=== PATIENT | male | born 1980 | race Two or more races ===

== ENCOUNTER 2023-07-22 12:27 | Inpatient (IN) | payer OTHER ==
[2023-07-22 12:53] VITALS: BMI 30.1
[2023-07-22] MEDS ORDERED: BENZOCAINE/MENTHOL (CHLORASEPTIC ) LOZENGE MM PRN (16:43)
[2023-07-22] MEDS ORDERED: BENZONATATE 200 MG CAPSULE PO PRN (16:43)
[2023-07-22] MEDS ORDERED: MAG HYDROX/AL HYDROX/SIMETH 30 ML UNIT-DOSE CUP PO PRN (16:43)
[2023-07-22] MEDS ORDERED: POLYETHYLENE GLYCOL (HEALTHYLAX) 3350 17 GM PACKET PO PRN (16:43)
[2023-07-22] MEDS ORDERED: LOPERAMIDE HCL 2 MG CAPSULE PO PRN (16:43)
[2023-07-22] MEDS ORDERED: hydrOXYzine PAMOATE 25 MG CAPSULE (FP) PO PRN (16:43)
[2023-07-22] MEDS ORDERED: ACETAMINOPHEN 325 MG TABLET (FP) PO PRN (16:43)
[2023-07-22] MEDS ORDERED: IBUPROFEN 400 MG TABLET (FP) PO PRN (16:43)
[2023-07-22] MEDS ORDERED: guaiFENesin 600 MG TABLET.ER (FP) PO PRN (16:43)
[2023-07-22] MEDS ORDERED: IBUPROFEN 600 MG TABLET (FP) PO PRN (16:43)
[2023-07-22] MEDS ORDERED: METHOCARBAMOL 500 MG TABLET PO PRN (16:43)
[2023-07-22] MEDS: metFORMIN HCL 500 MG TABLET (FP) PO SCH (17:03)
[2023-07-22] MEDS: THIAMINE HCL 100 MG TABLET (FP) PO SCH (21:20)
[2023-07-22] MEDS ORDERED: MELATONIN 5 MG TABLETS PO SCH (22:00)
[2023-07-23] MEDS: metFORMIN HCL 500 MG TABLET (FP) PO SCH ×2 (07:13→16:33)
[2023-07-23] MEDS: PRENATAL VITAMINS W/ FOLIC ACID TABLET (FP) PO SCH (10:10)
[2023-07-23] MEDS: THIAMINE HCL 100 MG TABLET (FP) PO SCH (21:49)
[2023-07-23] MEDS: amLODIPine BESYLATE 10 MG TABLET (FP) PO SCH (21:53)
[2023-07-23] MEDS ORDERED: SUVOREXANT 10 MG TABLET PO PRN (22:00)
[2023-07-24] MEDS: metFORMIN HCL 500 MG TABLET (FP) PO SCH ×2 (06:46→16:54)
[2023-07-24] MEDS: amLODIPine BESYLATE 10 MG TABLET (FP) PO SCH (10:47)
[2023-07-24] MEDS: PRENATAL VITAMINS W/ FOLIC ACID TABLET (FP) PO SCH (10:47)
[2023-07-24] MEDS: THIAMINE HCL 100 MG TABLET (FP) PO SCH (21:48)
[2023-07-25] MEDS: metFORMIN HCL 500 MG TABLET (FP) PO SCH ×2 (06:32→16:54)
[2023-07-25] MEDS: amLODIPine BESYLATE 10 MG TABLET (FP) PO SCH (10:23)
[2023-07-25] MEDS: PRENATAL VITAMINS W/ FOLIC ACID TABLET (FP) PO SCH (10:23)
[2023-07-25] MEDS: THIAMINE HCL 100 MG TABLET (FP) PO SCH (21:11)
[2023-07-26] MEDS: metFORMIN HCL 500 MG TABLET (FP) PO SCH ×2 (06:49→17:26)
[2023-07-26] MEDS: PRENATAL VITAMINS W/ FOLIC ACID TABLET (FP) PO SCH (10:22)
[2023-07-26] MEDS: amLODIPine BESYLATE 10 MG TABLET (FP) PO SCH (10:22)
[2023-07-26] MEDS: THIAMINE HCL 100 MG TABLET (FP) PO SCH (21:13)
[2023-07-26] MEDS ORDERED: SUVOREXANT 10 MG TABLET PO PRN (22:00)
[2023-07-27] MEDS: metFORMIN HCL 500 MG TABLET (FP) PO SCH ×2 (06:17→16:53)
[2023-07-27] MEDS: PRENATAL VITAMINS W/ FOLIC ACID TABLET (FP) PO SCH (10:00)
[2023-07-27] MEDS: amLODIPine BESYLATE 10 MG TABLET (FP) PO SCH (10:00)
[2023-07-27] MEDS: THIAMINE HCL 100 MG TABLET (FP) PO SCH (21:04)
[2023-07-27] MEDS: LIDOCAINE PATCH REMOVAL MC SCH (21:46)
[2023-07-27] MEDS: METHYL SALICYLATE/MENTHOL OINT 30 GM TUBE TP SCH (21:46)
[2023-07-28] MEDS: metFORMIN HCL 500 MG TABLET (FP) PO SCH ×2 (07:38→16:39)
[2023-07-28 08:56] LABS: POTASSIUM 4.6 mmol/L (3.5-5.1)
[2023-07-28 08:57] LABS: EOS % 3.7 % (0-4.5); HEMATOCRIT 35.5 % (35.4-49); HEMOGLOBIN 12.4 GM/dL (11.7-16.9); LYMPH % 40.6 % (8-40); MCH 30.3 pg (25.7-33.7); MCHC 34.9 g/dl (32.0-35.9); MEAN CELL VOLUME 86.8 fl (80-96); MEAN PLT VOLUME 7.5 fl (7.5-11.1); MONO % 15.3 % (3.8-10.2); NEUT % 39.4 % (42.8-82.8); PLATELET COUNT 347 10^3/uL (134-434); RBC 4.09 M/mm3 (4.00-5.60); RDW 15.9 % (11.9-15.9); WHITE BLOOD COUNT 6.2 K/mm3 (4.0-10.0)
[2023-07-28 09:07] LABS: CALCIUM 9.1 mg/dL (8.5-10.1)
[2023-07-28 09:08] LABS: ALBUMIN 3.3 g/dl (3.4-5.0); BLOOD UREA NITROGEN 13.9 mg/dL (7-18); MAGNESIUM 1.8 mg/dL (1.8-2.4)
[2023-07-28 09:11] LABS: CREATININE 0.8 mg/dL (0.55-1.3)
[2023-07-28 09:12] LABS: BILIRUBIN,TOTAL 0.4 mg/dL (0.2-1); TOT PROT 6.9 g/dl (6.4-8.2)
[2023-07-28] MEDS: LIDOCAINE 5% TOPICAL PATCH TP SCH (10:15)
[2023-07-28] MEDS: amLODIPine BESYLATE 10 MG TABLET (FP) PO SCH (10:15)
[2023-07-28] MEDS: PRENATAL VITAMINS W/ FOLIC ACID TABLET (FP) PO SCH (10:15)
[2023-07-28] MEDS: METHYL SALICYLATE/MENTHOL OINT 30 GM TUBE TP SCH ×2 (10:16→21:37)
[2023-07-28] MEDS: THIAMINE HCL 100 MG TABLET (FP) PO SCH (21:35)
[2023-07-28] MEDS: LIDOCAINE PATCH REMOVAL MC SCH (21:37)
[2023-07-29] MEDS: metFORMIN HCL 500 MG TABLET (FP) PO SCH ×2 (07:31→16:52)
[2023-07-29] MEDS: PRENATAL VITAMINS W/ FOLIC ACID TABLET (FP) PO SCH (10:26)
[2023-07-29] MEDS: METHYL SALICYLATE/MENTHOL OINT 30 GM TUBE TP SCH ×2 (10:27→21:39)
[2023-07-29] MEDS: LIDOCAINE 5% TOPICAL PATCH TP SCH (10:27)
[2023-07-29] MEDS: amLODIPine BESYLATE 10 MG TABLET (FP) PO SCH (10:27)
[2023-07-29] MEDS: THIAMINE HCL 100 MG TABLET (FP) PO SCH (21:38)
[2023-07-29] MEDS: LIDOCAINE PATCH REMOVAL MC SCH (21:40)
[2023-07-30] MEDS: metFORMIN HCL 500 MG TABLET (FP) PO SCH ×2 (06:13→16:59)
[2023-07-30] MEDS: PRENATAL VITAMINS W/ FOLIC ACID TABLET (FP) PO SCH (10:15)
[2023-07-30] MEDS: amLODIPine BESYLATE 10 MG TABLET (FP) PO SCH (10:15)
[2023-07-30] MEDS: LIDOCAINE 5% TOPICAL PATCH TP SCH (10:15)
[2023-07-30] MEDS: METHYL SALICYLATE/MENTHOL OINT 30 GM TUBE TP SCH ×2 (10:16→21:27)
[2023-07-30] MEDS: THIAMINE HCL 100 MG TABLET (FP) PO SCH (21:25)
[2023-07-30] MEDS: LIDOCAINE PATCH REMOVAL MC SCH (21:27)
[2023-07-31] MEDS: metFORMIN HCL 500 MG TABLET (FP) PO SCH ×2 (06:00→17:01)
[2023-07-31] MEDS: COLLOIDAL OATMEAL 1 BAR EACH TP PRN (08:39)
[2023-07-31] MEDS: METHYL SALICYLATE/MENTHOL OINT 30 GM TUBE TP SCH ×2 (09:55→21:24)
[2023-07-31] MEDS: amLODIPine BESYLATE 10 MG TABLET (FP) PO SCH (09:55)
[2023-07-31] MEDS: PRENATAL VITAMINS W/ FOLIC ACID TABLET (FP) PO SCH (09:55)
[2023-07-31] MEDS: LIDOCAINE 5% TOPICAL PATCH TP SCH (09:56)
[2023-07-31] MEDS: THIAMINE HCL 100 MG TABLET (FP) PO SCH (21:23)
[2023-07-31] MEDS: LIDOCAINE PATCH REMOVAL MC SCH (21:24)
[2023-08-01] MEDS: metFORMIN HCL 500 MG TABLET (FP) PO SCH ×2 (06:42→16:59)
[2023-08-01] MEDS: LIDOCAINE 5% TOPICAL PATCH TP SCH (09:46)
[2023-08-01] MEDS: amLODIPine BESYLATE 10 MG TABLET (FP) PO SCH (09:46)
[2023-08-01] MEDS: PRENATAL VITAMINS W/ FOLIC ACID TABLET (FP) PO SCH (09:46)
[2023-08-01] MEDS: METHYL SALICYLATE/MENTHOL OINT 30 GM TUBE TP SCH ×2 (09:47→21:01)
[2023-08-01] MEDS: MAGNESIUM HYDROX 2400MG/30ML ORAL SUSPENSION 30 ML CUP PO PRN (19:51)
[2023-08-01] MEDS: THIAMINE HCL 100 MG TABLET (FP) PO SCH (20:59)
[2023-08-01] MEDS: LIDOCAINE PATCH REMOVAL MC SCH (21:57)
[2023-08-01] MEDS ORDERED: SUVOREXANT 10 MG TABLET PO PRN (22:00)
[2023-08-02] MEDS: metFORMIN HCL 500 MG TABLET (FP) PO SCH ×2 (06:42→16:38)
[2023-08-02] MEDS: PRENATAL VITAMINS W/ FOLIC ACID TABLET (FP) PO SCH (10:07)
[2023-08-02] MEDS: LIDOCAINE 5% TOPICAL PATCH TP SCH (10:07)
[2023-08-02] MEDS: amLODIPine BESYLATE 10 MG TABLET (FP) PO SCH (10:07)
[2023-08-02] MEDS: METHYL SALICYLATE/MENTHOL OINT 30 GM TUBE TP SCH ×2 (10:08→21:33)
[2023-08-02] MEDS: MAGNESIUM HYDROX 2400MG/30ML ORAL SUSPENSION 30 ML CUP PO PRN (13:59)
[2023-08-02] MEDS: THIAMINE HCL 100 MG TABLET (FP) PO SCH (21:32)
[2023-08-02] MEDS: LIDOCAINE PATCH REMOVAL MC SCH (21:33)
[2023-08-03] MEDS: metFORMIN HCL 500 MG TABLET (FP) PO SCH ×2 (06:29→16:40)
[2023-08-03] MEDS: PRENATAL VITAMINS W/ FOLIC ACID TABLET (FP) PO SCH (09:55)
[2023-08-03] MEDS: METHYL SALICYLATE/MENTHOL OINT 30 GM TUBE TP SCH ×2 (09:55→21:04)
[2023-08-03] MEDS: amLODIPine BESYLATE 10 MG TABLET (FP) PO SCH (09:56)
[2023-08-03] MEDS: LIDOCAINE 5% TOPICAL PATCH TP SCH (09:56)
[2023-08-03] MEDS: THIAMINE HCL 100 MG TABLET (FP) PO SCH (21:04)
[2023-08-03] MEDS: LIDOCAINE PATCH REMOVAL MC SCH (21:04)
[2023-08-04] MEDS: metFORMIN HCL 500 MG TABLET (FP) PO SCH ×2 (06:50→17:25)
[2023-08-04] MEDS: METHYL SALICYLATE/MENTHOL OINT 30 GM TUBE TP SCH ×2 (09:51→21:53)
[2023-08-04] MEDS: LIDOCAINE 5% TOPICAL PATCH TP SCH (09:51)
[2023-08-04] MEDS: amLODIPine BESYLATE 10 MG TABLET (FP) PO SCH (09:52)
[2023-08-04] MEDS: PRENATAL VITAMINS W/ FOLIC ACID TABLET (FP) PO SCH (09:52)
[2023-08-04] MEDS: LIDOCAINE PATCH REMOVAL MC SCH (21:23)
[2023-08-04] MEDS: THIAMINE HCL 100 MG TABLET (FP) PO SCH (21:23)
[2023-08-05] MEDS: metFORMIN HCL 500 MG TABLET (FP) PO SCH ×2 (06:53→16:38)
[2023-08-05] MEDS: METHYL SALICYLATE/MENTHOL OINT 30 GM TUBE TP SCH ×2 (10:07→21:28)
[2023-08-05] MEDS: PRENATAL VITAMINS W/ FOLIC ACID TABLET (FP) PO SCH (10:07)
[2023-08-05] MEDS: LIDOCAINE 5% TOPICAL PATCH TP SCH (10:08)
[2023-08-05] MEDS: amLODIPine BESYLATE 10 MG TABLET (FP) PO SCH (10:08)
[2023-08-05] MEDS: THIAMINE HCL 100 MG TABLET (FP) PO SCH (21:16)
[2023-08-05] MEDS: LIDOCAINE PATCH REMOVAL MC SCH (21:28)
[2023-08-06] MEDS: metFORMIN HCL 500 MG TABLET (FP) PO SCH ×2 (06:52→16:32)
[2023-08-06] MEDS: amLODIPine BESYLATE 10 MG TABLET (FP) PO SCH (09:57)
[2023-08-06] MEDS: LIDOCAINE 5% TOPICAL PATCH TP SCH (09:57)
[2023-08-06] MEDS: METHYL SALICYLATE/MENTHOL OINT 30 GM TUBE TP SCH ×2 (09:57→21:15)
[2023-08-06] MEDS: PRENATAL VITAMINS W/ FOLIC ACID TABLET (FP) PO SCH (09:57)
[2023-08-06] MEDS: MAGNESIUM HYDROX 2400MG/30ML ORAL SUSPENSION 30 ML CUP PO PRN (14:05)
[2023-08-06] MEDS: COLLOIDAL OATMEAL 1 BAR EACH TP PRN (16:34)
[2023-08-06] MEDS: THIAMINE HCL 100 MG TABLET (FP) PO SCH (21:13)
[2023-08-06] MEDS: LIDOCAINE PATCH REMOVAL MC SCH (21:15)
[2023-08-07] MEDS: metFORMIN HCL 500 MG TABLET (FP) PO SCH ×2 (07:16→16:42)
[2023-08-07] MEDS: METHYL SALICYLATE/MENTHOL OINT 30 GM TUBE TP SCH ×2 (09:59→21:15)
[2023-08-07] MEDS: LIDOCAINE 5% TOPICAL PATCH TP SCH (09:59)
[2023-08-07] MEDS: PRENATAL VITAMINS W/ FOLIC ACID TABLET (FP) PO SCH (09:59)
[2023-08-07] MEDS: amLODIPine BESYLATE 10 MG TABLET (FP) PO SCH (10:00)
[2023-08-07] MEDS: THIAMINE HCL 100 MG TABLET (FP) PO SCH (21:14)
[2023-08-07] MEDS: LIDOCAINE PATCH REMOVAL MC SCH (21:15)
[2023-08-08] MEDS: metFORMIN HCL 500 MG TABLET (FP) PO SCH ×2 (06:38→16:39)
[2023-08-08] MEDS: LIDOCAINE 5% TOPICAL PATCH TP SCH (09:54)
[2023-08-08] MEDS: PRENATAL VITAMINS W/ FOLIC ACID TABLET (FP) PO SCH (09:54)
[2023-08-08] MEDS: amLODIPine BESYLATE 10 MG TABLET (FP) PO SCH (09:54)
[2023-08-08] MEDS: METHYL SALICYLATE/MENTHOL OINT 30 GM TUBE TP SCH ×2 (09:54→21:05)
[2023-08-08] MEDS: THIAMINE HCL 100 MG TABLET (FP) PO SCH (21:05)
[2023-08-08] MEDS: LIDOCAINE PATCH REMOVAL MC SCH (21:05)
[2023-08-09] MEDS: metFORMIN HCL 500 MG TABLET (FP) PO SCH (07:02)
[2023-08-09 07:08] VITALS: BP 130/68; PULSE 72; RESP 18; TEMP 97.4
[2023-08-09] MEDS: METHYL SALICYLATE/MENTHOL OINT 30 GM TUBE TP SCH (09:32)
[2023-08-09] MEDS: PRENATAL VITAMINS W/ FOLIC ACID TABLET (FP) PO SCH (09:33)
[2023-08-09] MEDS: amLODIPine BESYLATE 10 MG TABLET (FP) PO SCH (09:33)
[2023-08-09] MEDS: LIDOCAINE 5% TOPICAL PATCH TP SCH (09:33)
== END 2023-08-09 10:15 | disposition home or self-care (01) | DRG 772 ==
LOC: YASAS 12:27 → Y5N 16:26
PROVIDERS: ADMIT Allergy & Immunology; ATTEND Psychiatry & Neurology Pain Medicine
PROC: HZ42ZZZ Group Counseling for Substance Abuse Treatment, Cognitive-Behavioral (ICD-10-PCS; principal; 2023-07-22)
DX: F10.20 Alcohol dependence, uncomplicated (principal); F12.20 Cannabis dependence, uncomplicated; F10.282 Alcohol dependence with alcohol-induced sleep disorder; F10.24 Alcohol dependence with alcohol-induced mood disorder; I10 Essential (primary) hypertension; E11.9 Type 2 diabetes mellitus without complications; Z79.84 Long term (current) use of oral hypoglycemic drugs; M54.32 Sciatica, left side; Z87.891 Personal history of nicotine dependence
CPT/HCPCS: 36415; 80053; 82140; 82652; 82962; 83735; 85025; 86803; 87635; 87811